=== PATIENT | male | born 1980 | race African-American/Black ===

== ENCOUNTER 2016-12-27 06:22 | Emergency (ER) | payer OTHER ==
[~2016-12-27] VITALS: Ht 170.2 cm; Wt 64.4 kg
[2016-12-27] MEDS ORDERED: ONDANSETRON HCL/PF 4 MG/2 ML VIAL ONE (06:43)
[2016-12-27] MEDS ORDERED: IV SET PRIMARY 1 EA INFUS.SET MC ONE (06:43)
[2016-12-27] MEDS ORDERED: IV NS 0.9% 1,000 ML ONE (06:43)
[2016-12-27] MEDS ORDERED: MORPHINE SULFATE INJ 2 MG/ML DISP.SYRIN ONE (06:50)
--- NOTE | 2016-12-27 06:53 | NUR ---
PT A/OX4 BREATHING EFFORTLESSLY ON ROOM AIR, PT STATES HE HAS BEEN HAVING DIARRHEA ALL NIGHT LONG WITH ABDOMINAL PAIN, PT STATES HE ALSO HAD 1 BOUT OF VOMITING IN THE ER LOBBY, PT ON MONITOR IN GOWN, IV PLACED LABS DRAWN, PT FRIEND AT BEDSIDE OF PT MADE AWARE WILL CONTINUE TO MONITOR.
[2016-12-27] MEDS ORDERED: IV NS 0.9% 1,000 ML BAG IV ONE (07:00)
[2016-12-27] MEDS ORDERED: ONDANSETRON HCL/PF 4 MG/2 ML VIAL IVP ONE (07:00)
[2016-12-27] MEDS ORDERED: MORPHINE SULFATE INJ 2 MG/ML DISP.SYRIN IV ONE (07:00)
[2016-12-27 07:15] LABS: HEMATOCRIT 45 % (39-51); HEMOGLOBIN 14.8 g/dL (13.5-17.5); LYMPHOCYTES # (AUTO) 0.5 /CMM (0.8-4.8); LYMPHOCYTES % (AUTO) 4.9 % (20.0-44.0); MEAN CORPUSCULAR HEMOGLOBIN 30 PG (26.0-33.0); MEAN CORPUSCULAR HGB CONC 33 g/dl (31.0-36.0); MEAN CORPUSCULAR VOLUME 91 fL (80-96); MONOCYTES # (AUTO) 0.9 /CMM (0.1-1.30); MONOCYTES % (AUTO) 8.2 % (2.0-12.0); NEUTROPHILS # (AUTO) 9.8 /CMM (1.8-8.9); NEUTROPHILS % (AUTO) 86.9 % (43.0-81.0); PLATELET COUNT (AUTO) 192 /CMM (150-450); RDW COEFFICIENT OF VARIATION 14.1 (11.5-15.0); RED BLOOD CELL COUNT(AUTO) 4.88 MIL/uL (4.5-6.0); WHITE BLOOD COUNT (AUTO) 11.2 K/uL (4.3-11.0)
[2016-12-27 07:26] LABS: CALCIUM, SERUM 8.5 mg/dL (8.5-10.1); CREATININE 1.3 mg/dL (0.6-1.3); POTASSIUM 3.5 mmol/L (3.5-5.1)
[2016-12-27 07:30] LABS: ALBUMIN 3.7 g/dL (3.4-5.0); BILIRUBIN,DIRECT 0.1 mg/dL (0.0-0.2); BILIRUBIN,TOTAL 0.4 mg/dL (0.2-1.0); TOTAL PROTEIN, SERUM 7.2 g/dL (6.4-8.2)
[2016-12-27 07:46] VITALS: BP 122/72
--- NOTE | 2016-12-27 07:47 | NUR ---
Patient discharged to home in stable condition. Written and verbal after care instructions given. Patient verbalizes understanding of instruction.IV removed. Catheter intact and site benign. Pressure and 4x4 applied to site. No bleeding noted. ambulatory with a steady gait. prescriptions given. no further complaints.
== END 2016-12-27 07:46 | disposition home or self-care (01) ==
LOC: ER 06:27
DX: R19.7 Diarrhea, unspecified (principal); R11.2 Nausea with vomiting, unspecified
CPT/HCPCS: 36415; 80048; 80076; 83690; 85025; 96361; 96374; 96375; 99284; A4606; J2270; J2405; J7030; Z7610

== ENCOUNTER 2017-04-04 11:36 | Emergency (ER) | payer OTHER ==
[~2017-04-04] VITALS: Ht 170.2 cm; Wt 65.8 kg
[2017-04-04 11:36] VITALS: BP 149/85
== END 2017-04-04 12:41 | disposition home or self-care (01) ==
LOC: ER 11:37
DX: S00.81XA Abrasion of other part of head, initial encounter (principal); F17.200 Nicotine dependence, unspecified, uncomplicated; X58.XXXA Exposure to other specified factors, initial encounter; Y93.89 Activity, other specified; Y92.89 Other specified places as the place of occurrence of the external cause; Y99.9 Unspecified external cause status
CPT/HCPCS: A4606; Z7610

== ENCOUNTER 2018-04-28 12:58 | Inpatient (IN) | payer SELFPAY ==
[~2018-04-28] VITALS: Ht 167.6 cm; Wt 59.0 kg
[2018-04-28 15:19] LABS: BASOPHILS % (AUTO) 0.2 % (0.0-2.0); EOSINOPHILS % (AUTO) 1.5 % (0.0-6.0); HEMATOCRIT 42 % (39-51); HEMOGLOBIN 13.8 g/dL (13.5-17.5); LYMPHOCYTES # (AUTO) 1.6 /CMM (0.8-4.8); LYMPHOCYTES % (AUTO) 30.6 % (20.0-44.0); MEAN CORPUSCULAR HEMOGLOBIN 29 PG (26.0-33.0); MEAN CORPUSCULAR HGB CONC 33 g/dl (31.0-36.0); MEAN CORPUSCULAR VOLUME 89 fL (80-96); MONOCYTES # (AUTO) 0.3 /CMM (0.1-1.30); MONOCYTES % (AUTO) 6.3 % (2.0-12.0); NEUTROPHILS # (AUTO) 3.2 /CMM (1.8-8.9); NEUTROPHILS % (AUTO) 61.4 % (43.0-81.0); PLATELET COUNT (AUTO) 200 /CMM (150-450); RDW COEFFICIENT OF VARIATION 14.2 (11.5-15.0); RED BLOOD CELL COUNT(AUTO) 4.72 MIL/uL (4.5-6.0); WHITE BLOOD COUNT (AUTO) 5.2 K/uL (4.3-11.0)
[2018-04-28 15:28] LABS: CALCIUM, SERUM 8.1 mg/dL (8.5-10.1); CREATININE 1.4 mg/dL (0.6-1.3); POTASSIUM 4.1 mmol/L (3.5-5.1)
[2018-04-28] MEDS ORDERED: CEFTRIAXONE 1GM BAG (ER ONLY) 1 GM/50 ML PIGGYBACK IV ONE (15:30)
[2018-04-28] MEDS ORDERED: AZITHROMYCIN 500 MG in IV D5W 250 ML IV ONE (15:30)
[2018-04-28 15:43] LABS: B-TYPE NATRIURETIC PEPTIDE 5464 PG/ML (0-125); TROPONIN I < 0.017 ng/mL (0.00-0.056)
[2018-04-28] MEDS ORDERED: DOLU10TA PO (15:54)
[2018-04-28] MEDS ORDERED: [UNRECOGNIZED DRUG - REMARK] PO (15:54)
--- NOTE | 2018-04-28 15:54 | NUR ---
PAGED POPULATION HEALTH COACH DR HUANG
--- NOTE | 2018-04-28 15:57 | NUR ---
PATIENT ASSIGNED TO [facility] DX [facility] ADMITTING PHYSICIAN DR HUANG
[2018-04-28] MEDS ORDERED: KETOROLAC TROMETHAMINE INJ 30 MG/ML VIAL IV ONE (16:00)
[2018-04-28] MEDS ORDERED: ONDANSETRON HCL/PF - ER 4 MG/2 ML VIAL IV ONE (16:00)
[2018-04-28] MEDS ORDERED: KETOROLAC TROMETHAMINE 15 MG/ML VIAL ONE (16:07)
[2018-04-28] MEDS ORDERED: ONDANSETRON HCL/PF 4 MG/2 ML VIAL ONE (16:08)
[2018-04-28] MEDS ORDERED: SULFAMETH/TRIMETH 800/160 MG 1 UDTAB TABLET PO STA (16:11)
--- NOTE | 2018-04-28 16:17 | NUR ---
REPORT GIVEN TO LUIZ COLEMAN FOR 200.
[2018-04-28] MEDS ORDERED: SULFAMETH/TRIMETH 800/160 MG 1 UDTAB TABLET PO ONE (16:21)
--- NOTE | 2018-04-28 16:40 | NUR ---
MS RN OPENING NOTES PATIENT ARRIVED TO THE UNIT STABLE IN NO APPARENT DISTRESS. IV LINE IS INTACT AND PATENT. CALL LIGHT IS WITHIN REACH. WILL CONTINUE TO MONITOR.
[2018-04-28] MEDS ORDERED: Z GUARD REMEDY 2 OZ OINT TP PRN (18:30)
[2018-04-28] MEDS ORDERED: MAGNESIUM HYDROXIDE 30 ML UDC PO PRN (18:30)
[2018-04-28] MEDS ORDERED: ONDANSETRON HCL/PF 4 MG/2 ML VIAL IVP PRN (18:30)
[2018-04-28] MEDS ORDERED: MAG HYDROX/AL HYDROX/SIMETH 30 ML UDC PO PRN (18:30)
[2018-04-28] MEDS ORDERED: HYDROCODONE/APAP 5/325MG 1 EACH TABLET PO PRN (18:30)
[2018-04-28] MEDS ORDERED: ACETAMINOPHEN 325 MG TABLET PO PRN (18:30)
[2018-04-28] MEDS ORDERED: ZOLPIDEM TARTRATE 5 MG TABLET PO PRN (18:30)
--- NOTE | 2018-04-28 18:43 | NUR ---
MS RN CLOSING NOTES PATIENT IS RESTING IN NO APPARENT DISTRESS. BEDSIDE RAILS ARE UPX2. BED IS LOCKED AND LOWERED. CALL LIGHT IS WITHIN REACH. IV LINE IS INTACT AND PATENT. ALL NEEDS WERE MET. WILL ENDORSE CARE TO QUALITY IMPROVEMENT COORDINATOR (RN) NURSE FOR JESSICA.
[2018-04-28] MEDS: IV NS 0.9% 1,000 ML IV PRN (18:48)
--- NOTE | 2018-04-28 19:30 | NUR ---
MS RN NOTES RECEIVED ON BED A/O X 4,BREATHING NORMAL,LUNG SOUND DIMINISHED ON BOTH LOWER LUNG FIELD DUE TO PNEUMONIA.NS AT 75ML/HR RATE IN PROGRESS VIA IV PUMP ON RAC.DENIES PAIN AT THE MOMENT.CALL LIGHT IN REACH,NEEDS ANTICIPATED.
[2018-04-28 20:00] VITALS: BP 104/87
--- NOTE | 2018-04-28 20:45 | NUR ---
MS RN NOTES BACTRIM DOSE AT 2100 HELD, DOSE GIVEN IN ER AT 1617, AND ITS Q 12 HOURS SCHEDULED.PER BUNNY AT PHARMACY,OKAY TO HOLD AND START IN THE MORNING.
[2018-04-28] MEDS: SULFAMETH/TRIMETH 800/160 MG 1 UDTAB TABLET PO SCH (21:00)
--- NOTE | 2018-04-29 01:00 | NUR ---
MS RN NOTES SOUND ASLEEP,KEPT WARM AND COMFORTABLE
--- NOTE | 2018-04-29 06:23 | NUR ---
MS RN NOTES SLEPT WELL AT NIGHT,DENIES PAIN NOR SHORTNESS OF BREATH.ABLE TO WALK WITH STEADY TO THE TOILET.IN NO ACUTE DISTRESS.WILL ENDORSE TO DAY NURSE FOR JESSICA.
[2018-04-29] MEDS: IV NS 0.9% 1,000 ML IV PRN ×2 (06:58→22:19)
[2018-04-29 07:43] LABS: BASOPHILS % (AUTO) 0.6 % (0.0-2.0); EOSINOPHILS % (AUTO) 1.1 % (0.0-6.0); HEMATOCRIT 38 % (39-51); HEMOGLOBIN 12.6 g/dL (13.5-17.5); LYMPHOCYTES # (AUTO) 1.5 /CMM (0.8-4.8); LYMPHOCYTES % (AUTO) 26.6 % (20.0-44.0); MEAN CORPUSCULAR HEMOGLOBIN 30 PG (26.0-33.0); MEAN CORPUSCULAR HGB CONC 33 g/dl (31.0-36.0); MEAN CORPUSCULAR VOLUME 92 fL (80-96); MONOCYTES # (AUTO) 0.3 /CMM (0.1-1.30); MONOCYTES % (AUTO) 5.5 % (2.0-12.0); NEUTROPHILS # (AUTO) 3.8 /CMM (1.8-8.9); NEUTROPHILS % (AUTO) 66.2 % (43.0-81.0); PLATELET COUNT (AUTO) 186 /CMM (150-450); RDW COEFFICIENT OF VARIATION 15.3 (11.5-15.0); RED BLOOD CELL COUNT(AUTO) 4.19 MIL/uL (4.5-6.0); WHITE BLOOD COUNT (AUTO) 5.7 K/uL (4.3-11.0)
[2018-04-29 08:00] VITALS: BP 109/86
--- NOTE | 2018-04-29 08:00 | NUR ---
MS RN notes Patient in bed, A/O x4 On low flow oxygen at 2L via NC. IVC in right AC with IVF NS infusing at 75ml/hr, denies pain. Appears calm and relax, denies SOB. Call light within reach. Will cont to monitor.
[2018-04-29 08:06] LABS: BILIRUBIN,TOTAL 0.6 mg/dL (0.2-1.0); CALCIUM, SERUM 7.4 mg/dL (8.5-10.1); CREATININE 1.3 mg/dL (0.6-1.3); MAGNESIUM 1.9 mg/dL (1.8-2.4); PHOSPHORUS 4.1 mg/dL (2.5-4.9); POTASSIUM 3.9 mmol/L (3.5-5.1)
[2018-04-29] MEDS: SULFAMETH/TRIMETH 800/160 MG 1 UDTAB TABLET PO SCH (08:14)
[2018-04-29] MEDS: CEFTRIAXONE 1 G in IV D5W 50 ML IV SCH (15:12)
[2018-04-29] MEDS: LEVALBUTEROL HCL NEB 1.25 MG/0.5 ML VIAL.NEB NEB SCH (15:57)
[2018-04-29 16:00] VITALS: BP 117/82
[2018-04-29] MEDS: AZITHROMYCIN 500 MG in IV D5W 250 ML IV SCH (16:05)
[2018-04-29 16:23] VITALS: BP 117/82
[2018-04-29] MEDS ORDERED: ALPRAZOLAM 0.25 MG TABLET PO PRN (17:30)
[2018-04-29] MEDS: ALPRAZOLAM 0.5 MG TABLET PO PRN (17:54)
--- NOTE | 2018-04-29 18:27 | NUR ---
MS RN Patient in bed, episode of severe anxiety today, noted with cold skin and perspiring a lot, per patient he was scared to . VS stable, oxygen 100% on 2L via NC. Calm environment and relaxation promoted. Notified Dr. Miller. Given PRN Alprazolam 0.25mg 1 tab. effective, behavior able to controlled, calm and relaxed at this time. Maintained on low flow oxygen, bed low and place alarm on. Place call light within reach. Will endorse to oncoming RN.
[2018-04-29] MEDS: methylPREDNISolone SOD SUCC 125 MG/2ML VIAL IV SCH (19:14)
--- NOTE | 2018-04-29 19:40 | NUR ---
MS RN NOTES RECEIVED CALM AND QUIET ON BED,JUST MEDICATED WITH APRAZOLAM 0.5MG BY DAYSHIFT NURSE FOR ANXIETY ATTACK.O2 IN USED AT 2L/NC TO KEEP O2 SAT ABOVE 90%.CALL LIGHT IN REACH.WILL CONTINUE TO MONITOR STATUS.
[2018-04-29 20:00] VITALS: BP 96/69
[2018-04-29] MEDS: SULFAMETHOXAZOLE/TRIMETHOPRIM 15 ML in IV D5W 250 ML IV SCH (21:47)
--- NOTE | 2018-04-29 21:47 | NUR ---
MS RN NOTES STARTED ON BACTRIM INJECTION 15ML ,1200/240MG IN D5W 250ML INFUSING VIA IV PUMP.
[2018-04-30] MEDS: LEVALBUTEROL HCL NEB 1.25 MG/0.5 ML VIAL.NEB NEB SCH ×4 (00:18→23:30)
--- NOTE | 2018-04-30 03:45 | NUR ---
MS RN NOTES SPOKE TO SAND FILLER ABOUT BACTRIM DOSE AT 5AM,SHE SAID ONLY 1 VIAL LEFT AND JUST WAIT IN THE MORNING AND ASK PHARMACY FOR THE NEXT DOSE.
--- NOTE | 2018-04-30 07:15 | NUR ---
MS RN NOTES NO SIGNIFICANT CHANGE IN STATUS. BREATHING TREATMENT TOLERATED WELL.IVF INFUSING.IN NO ACUTE DISTRESS.ENDORSED TO DAY NURSE FOR JESSICA.
[2018-04-30] MEDS: SULFAMETHOXAZOLE/TRIMETHOPRIM 15 ML in IV D5W 250 ML IV SCH (07:52)
[2018-04-30 08:00] VITALS: BP 116/78
--- NOTE | 2018-04-30 08:00 | NUR ---
MS RN notes Patient in bed, A/O x4 On low flow oxygen at 2L via NC. IVC in right AC with IVF NS infusing at 75ml/hr, denies pain. Appears calm and relax, denies SOB. Ambulating to the bathroom independently. Call light within reach. Will cont to monitor.
[2018-04-30] MEDS: methylPREDNISolone SOD SUCC 125 MG/2ML VIAL IV SCH ×3 (08:38→17:49)
[2018-04-30 10:16] LABS: *% CD 4 POS. LYMPH 20.9 % (30.8-58.5); *ABSOLUTE CD 4 HELPER 272 /uL (359-1519); *ABSOLUTE CD 8 SUPPRESSOR 741 /uL (109-897); *BASOS 0 % (Not Estab.); *CD4/CD8 RATIO 0.37 (0.92-3.72); *EOS 1 % (Not Estab.); *HCT 36.5 % (37.5-51.0); *HGB 11.8 g/dL (13.0-17.7); *IMMATURE GRANULOCYTES 0 % (Not Estab.); *LYMPHOCYTES 21 % (Not Estab.); *LYMPHS, ABSOLUTE 1.3 x10E3/uL (0.7-3.1); *MCH 29.6 pg (26.6-33.0); *MCHC 32.3 g/dL (31.5-35.7); *MCV 92 fL (79-97); *MONOCYTES 2 % (Not Estab.); *MONOS, ABSOLUTE 0.1 x10E3/uL (0.1-0.9); *NEUTROPHILS 76 % (Not Estab.); *NEUTROPHILS, ABSOLUTE 4.8 x10E3/uL (1.4-7.0); *PLT 193 x10E3/uL (150-379); *RBC 3.99 x10E6/uL (4.14-5.80); *RDW 15.2 % (12.3-15.4)
[2018-04-30] MEDS ORDERED: FUROSEMIDE 20 MG/2 ML VIAL IV ONE (10:30)
[2018-04-30] MEDS: CEFTRIAXONE 1 G in IV D5W 50 ML IV SCH (14:46)
[2018-04-30] MEDS ORDERED: SULFAMETHOXAZOLE/TRIMETHOPRIM 15 ML in IV D5W 250 ML IV SCH (15:15)
[2018-04-30 16:00] VITALS: BP 106/58
[2018-04-30] MEDS: AZITHROMYCIN 500 MG in IV D5W 250 ML IV SCH (16:41)
[2018-04-30] MEDS: ENALAPRIL MALEATE (5 MG) 5 MG TABLET PO SCH (16:42)
--- NOTE | 2018-04-30 18:10 | NUR ---
MS RN closing notes Patient in bed, good appetite. Titrated oxygen at 1L via NC, tolerating well, oxygen sat 97%, ambulating independently. Cont on IV antibiotic per ID, VS remains stable, afebrile during the shift. Unable to collect sputum, patient not able to produce, no noted coughing. Plan continue hospitalization. Will endorse to oncoming RN.
[2018-04-30] MEDS: ALPRAZOLAM 0.5 MG TABLET PO PRN (18:30)
--- NOTE | 2018-04-30 19:21 | NUR ---
MS RN OPENING NOTES: RECEIVED PT ON 1LPM VIA NC AND IS TOLERATING WELL. FRIEND AT BEDSIDE. PT IS WATCHING TELEVISION. NO SOB NOTED. NO S/S OF DISTRESS. CALL LIGHT WITHIN PT'S REACH. BED KEPT IN LOW, LOCKED POSITION, AND SIDE RAILS X 2UP. WILL CONTINUE TO MONITOR PT.
[2018-04-30 20:00] VITALS: BP 105/59
[2018-04-30] MEDS: AZITHROMYCIN 250 MG TABLET PO SCH (20:24)
--- NOTE | 2018-04-30 23:50 | NUR ---
PT REFUSED HHN TX AT THIS TIME. PT WANTED TO SLEEP. JARED RUANO NOTIFIED.
[2018-05-01 06:44] LABS: CREATININE 1.3 mg/dL (0.6-1.3); POTASSIUM 4.6 mmol/L (3.5-5.1)
[2018-05-01 07:00] LABS: CALCIUM, SERUM 8.4 mg/dL (8.5-10.1)
--- NOTE | 2018-05-01 07:18 | NUR ---
MS RN CLOSING NOTES: ALL NEEDS WERE ATTENDED AND ANTICIPATED FOR. PT ON ROOM AIR AND TOLERATING WELL. PT AWAKE AND SITTING UP AND WANTS TO AMBULATE HE WAS ENCOURAGED TO AMBULATE BT DR. TACO HAMILTON NOTED. NO S/S OF DISTRESS. CALL LIGHT WITHIN PT'S REACH. BED KEPT IN LOW, LOCKED POSITION, AND SIDE RAILS X 2UP. ENDORSED TO AM NURSE FOR JESSICA.
--- NOTE | 2018-05-01 07:30 | NUR ---
MS RN OPENING NOTES RECEIVED PT SITTING UPRIGHT IN BED. AWAKE, ALERT AND RESPONSIVE. RESPIRATIONS ARE EVEN AND UNLABORED, NOT IN ANY ACUTE DISTRESS NOTED. PT DENIES ANY PAIN AT THIS TIME, NO C/O SOB, N/V. IV ACCESS TO RAC, INTACT, NO INFILTRATION NOTED. DRESSING KEPT CLEAN AND DRY. INSTRUCTED PT TO USE CALL LIGHT WHEN ASSISTANCE IS NEEDED, CALL LIGHT IS LEFT WITHIN REACH. SAFETY MEASURES ARE IN PLACE. WILL CONITNUE TO MONITOR THROUGHOUT SHIFT FOR CONTINUITY OF CARE.
[2018-05-01 08:00] VITALS: BP 105/74
[2018-05-01] MEDS: ENALAPRIL MALEATE (5 MG) 5 MG TABLET PO SCH (08:23)
--- NOTE | 2018-05-01 08:23 | NUR ---
MS RN NOTES PT REFUSED BP MEDICATION. BP 105/74. PT STATES "MY BLOOD PRESSURE IS FINE, I DONT NEED MY BLOOD PRESSURE MEDICATION." EXPLAINED THE RISKS AND BENEFITS. HONORED PT'S DIGNITY AND THE RIGHTS TO REFUSE. NO S/SX OF HYPO/HYPERTENSION NOTED. WILL CONTINUE TO MONITOR.
[2018-05-01] MEDS: LEVALBUTEROL HCL NEB 1.25 MG/0.5 ML VIAL.NEB NEB SCH ×3 (08:33→22:49)
--- NOTE | 2018-05-01 08:54 | NUR ---
RT NOTE LATE ENTRY: @ 0845 LEFT SPUTUM CONTAINER BEDSIDE FOR SPUTUM SAMPLE. PT IS AWAKE AND ALERT. INSTRUCTED PT TO SPIT IN CONTAINER. RN CLIFTON BRYSON.
--- NOTE | 2018-05-01 10:00 | NUR ---
MS RN NOTES RECEIVED ORDERS PER DR. RHODES TO D/C SPUTUM COLLECTION. PT MADE AWARE.
[2018-05-01] MEDS: CEFTRIAXONE 1 G in IV D5W 50 ML IV SCH (14:14)
[2018-05-01] MEDS: FUROSEMIDE 40 MG TABLET PO SCH (14:27)
[2018-05-01 16:00] VITALS: BP 99/62
--- NOTE | 2018-05-01 18:24 | NUR ---
MS RN CLOSING NOTES ALL DUE MEDS GIVEN, NEEDS MET AND RENDERED. PT REMAINS A/OX4, AFEBRILE. RESPIRATIONS ARE EVEN AND UNLABORED, NOT IN ANY ACUTE DISTRESS NOTED. NO C/O PAIN, SOB, N/V. IV TO RAC INTACT, NO INFILTRATION NOTED. DRESSING KEPT CLEAN AND DRY. SAFETY MEASURES ARE IN PLACE. CALL LIGHT IS LEFT WITHIN REACH. WILL ENDORSE TO NEXT SHIFT FOR CONTINUITY OF CARE.
--- NOTE | 2018-05-01 19:22 | NUR ---
MS RN OPENING NOTES: RECEIVED PT IN BED AND IS AWAKE AND ON ROOM AIR AND TOLERATING WELL. PT IS WATCHING TELEVISION. PT A/OX4. PT IS ANTICIPATING A VISITOR. IV REMAINS INTACT. CURRENTLY H/L. CALL LIGHT WITHIN PT'S REACH. BED KEPT IN LOW, LOCKED POSITION, AND SIDE RAILS X 2UP. WILL CONTINUE TO MONITOR PT.
[2018-05-01 20:00] VITALS: BP 105/68
[2018-05-01] MEDS: AZITHROMYCIN 250 MG TABLET PO SCH (20:35)
[2018-05-02 05:30] VITALS: BP 107/81
[2018-05-02] MEDS: ALPRAZOLAM 0.5 MG TABLET PO PRN (05:36)
--- NOTE | 2018-05-02 05:36 | NUR ---
MS RN NOTES: PT VERY ANXIOUS FOR OVER AN HOUR NOW. PT WAS ADMINISTERED XANAX 0.25MG PO. WILL CONTINUE TO MONITOR.
[2018-05-02 06:18] LABS: EOSINOPHILS % (AUTO) 0.7 % (0.0-6.0); HEMATOCRIT 39 % (39-51); HEMOGLOBIN 12.8 g/dL (13.5-17.5); LYMPHOCYTES # (AUTO) 1.5 /CMM (0.8-4.8); LYMPHOCYTES % (AUTO) 22.8 % (20.0-44.0); MEAN CORPUSCULAR HEMOGLOBIN 30 PG (26.0-33.0); MEAN CORPUSCULAR HGB CONC 33 g/dl (31.0-36.0); MEAN CORPUSCULAR VOLUME 92 fL (80-96); MONOCYTES # (AUTO) 0.5 /CMM (0.1-1.30); NEUTROPHILS # (AUTO) 4.5 /CMM (1.8-8.9); NEUTROPHILS % (AUTO) 68.5 % (43.0-81.0); PLATELET COUNT (AUTO) 188 /CMM (150-450); RDW COEFFICIENT OF VARIATION 15.8 (11.5-15.0); RED BLOOD CELL COUNT(AUTO) 4.25 MIL/uL (4.5-6.0); WHITE BLOOD COUNT (AUTO) 6.6 K/uL (4.3-11.0)
[2018-05-02 06:42] LABS: CALCIUM, SERUM 8.3 mg/dL (8.5-10.1); CREATININE 1.2 mg/dL (0.6-1.3); POTASSIUM 4.1 mmol/L (3.5-5.1)
--- NOTE | 2018-05-02 06:44 | NUR ---
MS RN CLOSING NOTES: ALL NEEDS WERE ATTENDED AND ANTICIPATED FOR. PT ASLEEP IN BED AT THIS TIME AND IS ON 2LPM VIA NC. IV REMAINS INTACT. PT CURRENTLY H/L. CALL LIGHT WITHIN PT'S REACH. BED KEPT IN LOW, LOCKED POSITION, AND SIDE RAILS X 2UP. WILL ENDORSE TO AM NURSE FOR JESSICA.
--- NOTE | 2018-05-02 07:37 | NUR ---
MS RN OPENING NOTES RECEIVED PT SITTING UP IN BED, RESTING COMFORTABLY WITH HOB ELEVATED. PT IS A/O X4, AFEBRILE. RESPIRATIONS ARE EVEN AND UNLABORED, NOT IN ANY ACUTE DISTRESS NOTED. PT DENIES ANY PAIN AT THIS TIME, NO C/O SOB, N/V. IV INTACT, NO INFILTRATION NOTED. DRESSING KEPT CLEAN AND DRY. SAFETY MEASURES ARE IN PLACE. INSTRUCTED PT TO USE CALL LIGHT WHEN ASSISTANCE IS NEEDED, CALL LIGHT IS LEFT WITHIN REACH. WILL CONTINUE TO MONITOR THROUGHOUT SHIFT.
[2018-05-02 08:00] VITALS: BP 109/75
[2018-05-02] MEDS: LEVALBUTEROL HCL NEB 1.25 MG/0.5 ML VIAL.NEB NEB SCH (08:05)
[2018-05-02] MEDS: FUROSEMIDE 40 MG TABLET PO SCH (08:37)
[2018-05-02 08:38] VITALS: BP 109/75
[2018-05-02] MEDS: ENALAPRIL MALEATE (5 MG) 5 MG TABLET PO SCH (08:38)
[2018-05-02] MEDS ORDERED: ENAL5TAB36 PO (12:00)
[2018-05-02] MEDS ORDERED: AZIT250T PO (12:00)
[2018-05-02] MEDS ORDERED: FURO40TA5 PO (12:00)
--- NOTE | 2018-05-02 13:33 | NUR ---
MS HARVESTING MANAGER NOTE PT DISCHARGED TO HOME VIA PERSONAL VEHICLE ACCOMPANIED BY FRIEND PAT IN STABLE CONDITION. EXPLAINED DISCHARGE PAPERWORK TO PT WITH VERBAL AND WRITTEN AGREEEMENT. PT IS A/O X4, AFEBRILE. RESPIRATIONS ARE EVEN AND UNLABORED, NOT IN ANY ACUTE DISTRESS NOTED. PT DENIES ANY PAIN AT THIS TIME. NO C/O SOB, N/V. PUPILS ARE REACTIVE TO LIGHT. BILATERAL HAND ETHNIC ORIGINS TEACHER ARE STRONG AND EQUAL. ABDOMEN IS SOFT AND NONDISTENDED. DENIES ANY BLADDER DISCOMFORT. IV SITE REMOVED, APPLIED PRESSURE AND TOLERATED WELL. ID BAND REMOVED. PT IS AMBULATORY. ALL BELONGINGS TAKEN WITH PT. ACCOMPANIED PT AND FRIEND TO VEHICLE. PT LEFT IN STABLE CONDITION.
== END 2018-05-02 13:30 | disposition home or self-care (01) | DRG 977 ==
LOC: ER 13:01 → MEDSG2 16:03
PROVIDERS: ADMIT Internal Medicine; ATTEND Internal Medicine
DX: B20 Human immunodeficiency virus [HIV] disease (principal); J96.01 Acute respiratory failure with hypoxia; I50.21 Acute systolic (congestive) heart failure; N17.0 Acute kidney failure with tubular necrosis; I42.8 Other cardiomyopathies; I51.7 Cardiomegaly; E87.70 Fluid overload, unspecified; F12.90 Cannabis use, unspecified, uncomplicated
CPT/HCPCS: 36415; 71045-TC; 80048-TC; 80053-TC; 80061-TC; 83615-TC; 83735-TC; 83880; 84100-TC; 84484-TC; 85025-TC; 86360; 87040-TC; 87081-TC; 93307-TC; 94640-TC; 94799-TC; A4606; J0456; J0696; J1885; J1940; J2405; J2930; J3490; J7030; J7050; J7060; Z7610